=== PATIENT | male | born 1975 | race Caucasian/White ===

== ENCOUNTER 2017-06-05 15:06 | Emergency (ER) | payer OTHER ==
[2017-06-05 15:15] VITALS: O2SAT 95
[2017-06-05] MEDS ORDERED: IBUPROFEN 800 MG TAB PO ONE (16:05)
[2017-06-05] MEDS ORDERED: LET GEL TOPICAL 1 EA SYR TP ONE ×2 (16:06→16:07)
--- NOTE | 2017-06-05 16:07 | EDPHY ---
H & P Stated Complaint: R elbow pain s/p fall Time Seen by Provider: 06/05/17 15:46 HPI/ROS: Chief complaint: Right elbow injury History of present illness: This is a 41-year-old male who presents to the emergency department for a right elbow injury. Patient was getting out of a tractor when he fell backwards landing onto his right elbow. He sustained a small cut. He reports pain. It hurts to move. Denies associated signs or symptoms including no abnormal coolness or paresthesias in the arm. No trauma to other parts of the body including the head or neck are reported. His tetanus is up-to-date. - Personal History Current Tetanus Diphtheria and Acellular Pertussis (TDAP): Yes - Medical/Surgical History Hx Asthma: No Hx Chronic Respiratory Disease: No Hx Diabetes: No Hx Cardiac Disease: No Hx Renal Disease: No Hx Cirrhosis: No Hx Alcoholism: No Hx HIV/AIDS: No Hx Splenectomy or Spleen Trauma: No Other PMH: hernia repair, seizures - Social History Smoking Status: Heavy smoker - Physical Exam Exam: General: Alert, nontoxic Skin: Abrasion to the right elbow Musculoskeletal: Tenderness over the right elbow, he does have pain flexing extending it but he can perform this. He is moving the wrist and shoulder well. Vascular: Radial pulses 2+. Capillary refill brisk in the right hand. Neurologic: Sensation intact throughout the right arm. Constitutional: Initial Vital Signs Temperature (C) 36.5 C 06/05/17 15:11 Heart Rate 79 06/05/17 15:11 Respiratory Rate 16 06/05/17 15:11 Blood Pressure 128/79 H 06/05/17 15:11 O2 Sat (%) 95 06/05/17 15:11 O2 Delivery Mode Room Air Allergies/Adverse Reactions: bee venom protein (honey bee) Allergy (Verified 06/05/17 15:15) trazodone Allergy (Verified 06/05/17 15:15) Medical Decision Making ED Course/Re-evaluation: Patient seen under the supervision of my secondary supervising physician Dr. Jerry Maza. Patient presents after falling onto his right elbow. He has an abrasion, his tetanus is up-to-date. This has been cleaned and dressed. X-ray is negative. Likely contusion. His arm remains neurovascularly intact. He is placed in a sling for comfort. Home care is discussed. He is to follow up with worker's compensation for recheck. - Data Points Medications Given: Discontinued Medications Ibuprofen (Motrin) 800 mg PO EDNOW ONE Stop: 06/05/17 16:06 Last Admin: 06/05/17 16:08 Dose: 800 mg Tetracaine/Epinephrine/Lidocaine (Let Gel Topical) 1 ea TP EDNOW ONE Stop: 06/05/17 16:08 Last Admin: 06/05/17 16:08 Dose: 1 ea Departure - Departure Disposition: Home, Routine, Self-Care Clinical Impression: Elbow contusion Condition: Good Instructions: Contusion in Adults (ED) Additional Instructions: Follow-up with worker's compensation for continued evaluation and care Use ibuprofen 800 mg 3 times a day for the next 2-3 days If symptoms worsen or new symptoms develop return to the emergency room for recheck Referrals: NONE *PRIMARY CARE P,. [Primary Care Provider] - As per Instructions
[2017-06-05 16:33] VITALS: BP 131/68; PULSE 75; RESP 18; TEMP 98.1
== END 2017-06-05 16:45 | disposition home or self-care (01) ==
DX: S50.01XA Contusion of right elbow, initial encounter (principal); F17.200 Nicotine dependence, unspecified, uncomplicated; V84.4XXA Person injured while boarding or alighting from special agricultural vehicle, initial encounter; Y99.8 Other external cause status
CPT/HCPCS: A4565